=== PATIENT | male | born 1985 | race Caucasian/White ===

== ENCOUNTER 2025-09-22 14:06 | Emergency (ER) | payer OTHER, SELFPAY ==
[2025-09-22 14:20] VITALS: BP 119/84; PULSE 89; RESP 17; TEMP 36.4; O2SAT 100; BMI 33.7
--- OUTSIDE RECORDS SUMMARY | 2025-09-22 14:44 | XMS_ITS | Encounter Summary ---
Author Organization [facility] Address [address] [place] [address] Care Team Providers Care Assisted Living Director Name Role Phone Bimal Schulz MD, Jaquan Barry Primary Care Provider Encounter Details Date Type Department Care Team (Late st Contact Info) Description 10/02/2007 Outpatient Historical [facility] [address] [facility] [address] [place] [id number] Mary Abrams, [facility] [address] 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
--- OUTSIDE RECORDS SUMMARY | 2025-09-22 14:44 | XMS_ITS | Encounter Summary ---
Author Organization [facility] Address [address] [place] [address] Care Team Providers Care Finishing Room Operator Name Role Phone Bimal Schulz MD, Jaquan Barry Primary Care Provider Encounter Details Date Type Department Care Team (Late st Contact Info) Description 08/10/2007 Emergency [facility] Emergency Department [address] [place] [address] Isael Gagnon MD NO ADDRESS ON FILE Fx Lumbar Vertebra-Closed (CMS/HCC) (Primary Dx) Social History Tobacco Use Types Packs/Day Years Used Date Smoking Tobacco: Never Assessed Sex and Gender Information Value Date Recorded Sex Assigned at Not on file 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
--- OUTSIDE RECORDS SUMMARY | 2025-09-22 14:44 | XMS_ITS | Clinical Summary ---
Author Organization [facility] Address [address] [place] [address] Care Team Providers Care Mental Retardation Nurse Name Role Phone Bimal Schulz MD, Jaquan Barry Primary Care Provider Allergies No known active allergies Medications omeprazole (PriLOSEC) 40 mg Capsule, Delayed Release(E.C.) Take 40 mg by mouth daily. Active vit B cmplx 3-FA-Vit C-Biotin (RENAVITE-RX RX) 1-60-300 mg-mg-mcg Tablet Take 1 Tablet by mouth daily. Active MULTIVIT-MINERALS /FOLIC ACID (ADULT ONE DAILY MULTIVITAMIN ORAL) Take by mouth. Active OTHER tumeric . Active calcium as carbonate (OS-JOSÉ) 1,250 mg (500 mg elemental) tablet Take 1 Tablet by mouth daily. Active folic acid (FOLVITE) 1 mg tablet Take 1 Tablet (1 mg) by mouth daily. 30 Tablet 11 8 Active leflunomide (ARAVA) 20 mg Tablet Take once a day on Mondays and Fridays 8 Tablet 1 Active sulfaSALAzine (AZULFIDINE EN-TAB) 500 mg Tablet, Delayed Release (E.C.) Take 1 Tablet (500 mg) by mouth 2 times daily after meals. 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/08/2018 Immunizations Immunization Administration Dates Next Due (TDVAX)(7 YRS UP) TETANUS AN D DIPHTHERIA TOXOIDS, ADSORBED (2 LF OF TETANUS TOXOID AND 2 LF OF DIPHTHERIA TOXOID), 0.5ML (PF), IM 05/30/2002 Dt Dtp Dtap Vaccine 10/02/1990 Hepatitis B Vaccine 09/16/1999,03/18/1999,1998 IPV/OPV 10/02/1990 Family History Relation Name Status Comments Father Alive Mother Alive Social History Tobacco Use Types Packs/Day Years Used Date Smoking Tobacco: Former Cigarettes 0.5 10 1 12/12/2004 - 10/11/2015 Smokeless Tobacco: Never Alcohol Use Standard Drinks/Week Comments No 0 (1 standard drink = 0.6 oz pur e alcohol) Sex and Gender Information Value Date Recorded Sex Assigned at Not on file 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 Gender Identity Not on file Sexual Orientation Not on file 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 on file Not on file Not on f ile Last Filed Vital Signs Vital Sign Reading Time Taken Comments Blood Pressure 126/76 02/08/2021 10:50 AM CDT Pulse 81 02/08/2021 10:50 AM CDT Temperature - - Respiratory Rate 20 02/08/2021 10:50 AM CDT Oxygen Saturation 96% 02/08/2021 10:50 AM CDT Inhaled Oxygen Concentration - - Weight 105.9 kg (233 lb 8 oz) 02/08/2021 10:50 A M CDT Height 180.3 cm (5' 11 ) 02/08/2021 10:50 AM CDT Body Mass Index 32.57 02/08/2021 10:50 AM CDT Plan of Treatment Health Maintenance Due Date Last Done Comments HPV VACCINES (1 - 3-dose SCD M series) 2013 INFLUENZA VACCINE (#1) 2025 07/31/2020, 2019 DTAP/TDAP/TD VACCINES (4 - T d or Tdap) 04/15/2029 04/15/2019, 05/30/2002, 10/02/1990 HEPATITIS B VACCINES Completed 09/16/1999, 03/18/1999, 02/11/1999 Care Teams Mental Retardation Nurse Relationship Specialty Start Date End Date Bimal Schulz, Jaquan Barry MD [address] [address] PCP - General Family Practice 05/08/18
--- OUTSIDE RECORDS SUMMARY | 2025-09-22 14:44 | XMS_ITS | Encounter Summary ---
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
--- OUTSIDE RECORDS SUMMARY | 2025-09-22 14:44 | XMS_ITS | Clinical Summary ---
Author Organization [facility] Address [address] [place] [address] Care Team Providers Care Valve Setter Name Role Phone Bimal Schulz MD, Jaquan Barry Primary Care Provider Allergies Active Allergy Reactions Criticality Noted Date Comments Nsaids (Non-Steroidal Anti-Inflammatory Drug) Other (See Comments) 10/21/2021 Can't have d/t gastric bypass surgery Medications sulfaSALAzine (AZULFIDINE) 500 mg tablet Take 1 Tablet (500 mg) by mouth 2 times daily. 60 Tablet 1 1 Active folic acid (FOLVITE) 1 mg tablet Take 1 Tablet (1 mg) by mouth daily. 30 Tablet 11 8 Active methylPREDNISolon e (MEDROL DOSPACK) 4 mg Tablets, Dose Pack Take each days dose in AM with food. 21 Tablet 2 Active chlorzoxazone (PARAFON FORTE) 500 mg tablet Take 1 Tablet (500 mg) by mouth daily at bedtime. 15 Tablet 2 Active omeprazole (PriLOSEC) 40 mg Capsule, Delayed Release(E.C.) Take 40 mg by mouth daily. 8 Active calcium as carbonate (OS-JOSÉ) 1,250 mg (500 mg elemental) tablet Take 1 Tablet by mouth daily. 8 Active multivit-minerals /folic acid (ADULT ONE DAILY MULTIVITAMIN ORAL) Take by mouth. 8 Active vit B cmplx 3-FA-Vit C-Biotin (RENAVITE-RX RX) 1-60-300 mg-mg-mcg Tablet Take 1 Tablet by mouth daily. 8 Active OTHER tumeric . 8 Active Active Problems Problem Noted Date Diagnosed [...] Used Date Smoking Tobacco: Former Cigarettes 0.5 Q uit: 10/11/2015 Smokeless Tobacco: Never Alcohol Use Standard Drinks/Week Comments No 0 (1 standard drink = 0.6 oz pur e alcohol) Sex and Gender Information Value Date Recorded Sex Assigned at Not on file Legal Sex Male 7:43 AM DISTILLERY MILLER Gender Identity Not on file Sexual Orientation Not on file Last Filed Vital Signs Vital Sign Reading Time Taken Comments Blood Pressure 132/84 10/21/2021 8:55 AM DISTILLERY MILLER Pulse 59 10/21/2021 8:55 AM DISTILLERY MILLER Temperature - - Respiratory Rate 18 10/21/2021 8:55 AM DISTILLERY MILLER Oxygen Saturation 98% 10/21/2021 8:55 AM DISTILLERY MILLER Inhaled Oxygen Concentration - - Weight 114.8 kg (253 lb) 10/21/2021 8:55 AM DISTILLERY MILLER Height 180.3 cm (5' 11 ) 10/21/2021 8:55 AM DISTILLERY MILLER Body Mass Index 35.29 10/21/2021 8:55 AM DISTILLERY MILLER Plan of Treatment Health Maintenance Due Date Last Done Comments HPV VACCINES (1 - 3-dose SCD M series) 2013 INFLUENZA VACCINE (#1) 2025 07/31/2020 COVID-19 Vaccine (3 - 2024-2 6 season) 2025 06/04/2021, 05/07/2021 DTAP/TDAP/TD VACCINES (4 - T d or Tdap) 04/15/2029 04/15/2019, 05/30/2002, 10/02/1990 HEPATITIS B VACCINES Completed 09/16/1999, 03/18/1999, 02/11/1999 Insurance [facility] [place] Care Teams Valve Setter Relationship Specialty Start Date End Date Jaquan Wallis Jr., MD [address] [phone] PCP - General 01/20/21
--- OUTSIDE RECORDS SUMMARY | 2025-09-22 14:44 | XMS_ITS | Encounter Summary ---
Author Organization [facility] Address [address] [place] [address] Care Team Providers Care Workforce Planner Name Role Phone Bimal Schulz MD, Jaquan Barry Primary Care Provider Encounter Details Date Type Department Care Team (Latest Contact Info) Description 08/10/2007 Outpatient Historical [facility] [address] 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 Technique: Spiral acquisition from the T12 superior endplate to the S2 level, axial images submittedwith reconstructions. Findings: Thoracolumbar region demonstrates multilevel small Schmorl's nodes. L1-L2 level is otherwiseunremarkable. L2 vertebral body superior endplate to the left of midline demonstrates a smallpartial compression. L2-L3 shows facet hypertrophy. L3-L4 also shows facet hypertrophy. L4-L5 discshows a bulge somewhat left paracentral and with facet hypertrophy there is mild canal stenosis. L5-S1 shows facet hypertrophy with a degree of facet joint fragmentation. There is nospondylolisthesis. L1 shows rudimentary bilateral ribs. Impression: L2 vertebral body superior endplate (slightly to the left of midline) demonstrates a mildpartial compression. - Dictated By: Ham Arshad M.D. Electronically Signed By: Ham Arshad M.D. Date Signed: 08/11/07 AMA Procedure Note 09/20/2009 CT Lumbar Spine. Technique: Spiral acquisition from the T12 superior endplate to the S2 level, axialimages submittedwith reconstructions. Findings: Thoracolumbar region demonstrates multilevel small Schmorl's nodes. L1-Z8lzqic is otherwiseunremarkable. L2 vertebral body superior endplate to the left of midline demonstrates asmallpartial compression. L2-L3 shows facet hypertrophy. L3-L4 also shows facet hypertrophy. L4- T0kexektvwx a bulge somewhat left paracentral and with facet hypertrophy there is mild canal stenosis. L5-S1 shows facet hypertrophy with a degree of facet joint fragmentation.There is nospondylolisthesis. L1 shows rudimentary bilateral ribs. Impression: L2 vertebral body superior endplate (slightly to the left of midline)demonstrates a mildpartial compression. - Dictated By: Ham Arshad M.D. Electronically Signed By: Ham Arshad M.D. Date Signed: 08/11/07 [facility] ORDERABLES Marilee l Result * CT THORACIC SPINE WO CONTRAST (08/10/2007 4:57 PM CDT) Anatomical Region Laterality Modality Spine Other 08/10/2007 4:57 PM CDT Narrative 08/10/2007 4:[address] Thoracic Spine. Clinical Indication: 21-year-old male with pain. Technique: Spiral acquisition, axial images submitted with reconstructions. Findings: Body habitus of the patient compromises diagnostic image quality. There is no fracture ordislocation. Grossly, there is no sign of a disc herniation or canal stenosis. Note is made ofmultilevel mild degenerative changes. Impression: Mild degenerative changes; there is no fracture, disc herniation or canal stenosis. - Dictated By: Ham Arshad M.D. Electronically Signed By: Ham Arshad M.D. Date Signed: 08/11/07 AMA Procedure Note 09/20/2009 CT Thoracic Spine. Clinical Indication: 21-year-old male with pain. Technique: Spiral acquisition, axial images submitted with reconstructions. Findings: Body habitus of the patient compromises diagnostic image quality. There isno fracture ordislocation. Grossly, there is no sign of a disc herniation or canal stenosis. Note ismade ofmultilevel mild degenerative changes. Impression: Mild degenerative changes; there is no fracture, disc herniation or canalstenosis. - Dictated By: Ham Arshad M.D. Electronically Signed By: Ham Arshad M.D. Date Signed: 08/11/07 AMA [facility] CT ORDERABLES Marilee l Result documented in this encounter Visit Diagnoses Diagnosis Backache, unspecified- Primary documented in this encounter Care Teams Workforce Planner Relationship Specialty Start Date End Date Jaquan Wallis Jr., MD [address] [address] PCP - General Family Practice 05/08/18 documented as of this encounter
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
--- OUTSIDE RECORDS SUMMARY | 2025-09-22 14:44 | XMS_ITS | Encounter Summary ---
Author Organization [facility] Address [address] [place] [address] Care Team Providers Care Pasteurizer Name Role Phone Bimal Schulz MD, Jaquan Barry Primary Care Provider Encounter Details Date Type Department Care Team (Latest Contact Info) Description 08/21/2007 Outpatient Historical [facility] [address] [place] [address] Yuan Royal MD [address] [place] [address] Lumbago (Primary Dx) Social History Tobacco Use Types Packs/Day Years Used Date Smoking Tobacco: Never Assessed Sex and Gender Information Value Date Recorded Sex Assigned at Not on file 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 Findings: Comparison CT of the lumbar spine is dated 08/10/2007. Today's examination is limited secondary to poor penetration of the x-ray beam. There appears to be amild superior endplate compression fracture of L2. There is no significant retropulsion of thevertebral body. The visualized other lumbar levels appear to be free of fracture. Summary: Mild superior endplate compression fracture of L2 without significant retropulsion. - Dictated By: Ryan Lopez Jr., M.D. Electronically Signed By: Ryan Lopez Jr., M.D.MD Date Signed: 08/23/07 [facility] Procedure Note 09/20/2009 Exam: Spine - Thoracolumbar One ViewDate/Time of Exam: Aug 21, 2007 3:50:08 PMHistory: INJURY. Findings: Comparison CT of the lumbar spine is dated 08/10/2007. Today's examination is limited secondary to poor penetration of the x-raybeam. There appears to be amild superior endplate compression fracture of L2. There is no significantretropulsion of thevertebral body. The visualized other lumbar levels appear to be free of fracture. Summary: Mild superior endplate compression fracture of L2 without significantretropulsion. - Dictated By: Ryan Lopez Jr., M.D. Electronically Signed By: Ryan Lopez Jr., M.D.MD Date Signed: 08/23/07 [facility] Yuan Royal MD DIAGNOSTIC IMAGING ORDERABLES Final Result documented in this encounter Visit Diagnoses Diagnosis Lumbago- Primary documented in this encounter Care Teams Pasteurizer Relationship Specialty Start Date End Date Jaquan Wallis Jr., MD [address] [phone] PCP - General Family Practice 05/08/18 documented as of this encounter
[2025-09-22 15:13] VITALS: BP 129/102; PULSE 110; RESP 18; O2SAT 91
--- NOTE | 2025-09-22 15:13 | CTR_ITS ---
PROCEDURE INFORMATION: Exam: CT Abdomen And Pelvis With Contrast Exam date and time: 09/22/2025 3:41 PM Age: 39 years old Clinical indication: Abdominal pain; Additional info: Left sided abd pain TECHNIQUE: Imaging protocol: Computed tomography of the abdomen and pelvis with contrast. Sagittal and coronal reformatted images were also reviewed. Radiation optimization: All CT scans at this facility use at least one of these dose optimization techniques: automated exposure control; mA and/or kV adjustment per patient size (includes targeted exams where dose is matched to clinical indication); or iterative reconstruction. Contrast material: [id number]; Contrast volume: 100 ml; Contrast route: INTRAVENOUS (IV); COMPARISON: No relevant prior studies available. RADIATION DOSE METRICS: Total DLP (mGy-cm): 1194.62 FINDINGS: Lungs: Visualized lungs are clear. Pleural spaces: No pleural effusion. Heart: Visualized portions of the heart are unremarkable. Liver: The liver is unremarkable. Gallbladder and biliary ducts: Patient has had a previous cholecystectomy. No biliary ductal dilatation. Pancreas: The pancreas is unremarkable. No pancreatic ductal dilatation. Spleen: The spleen is unremarkable. Adrenal glands: The right and left adrenal glands are unremarkable. Kidneys and ureters: The right kidney is unremarkable. Simple cyst in the left kidney measuring 2.5 cm. The right and left ureters are unremarkable. 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 Marked inflammatory changes at the perforation site (series 4, images 14-20 and series 6, images 40-58). Scattered foci of free intraperitoneal air in the left upper quadrant. No acute abnormality in the colon. Appendix: Appendix not definitely visualized. No inflammatory changes in the pericecal region however. Intraperitoneal space: Moderate amount of free fluid in the pelvis. No ascites. No abscess. Also see under stomach and bowel . Vasculature: No evidence for aortic aneurysm or aortic dissection. Hepatic veins, portal veins, splenic vein, and SMV are patent. Lymph nodes: No lymphadenopathy. Urinary bladder: The bladder is unremarkable. Reproductive: Unremarkable as visualized. Bones/joints: Mild degenerative changes in the visualized spine. Four non rib-bearing vertebral bodies, these are designated L1 through L4. Old, mild compression deformities of T9, T11, and L1. Soft tissues: No acute abnormality in the extra-abdominal soft tissues. CT/CT abdomen pelvis w con* [id number] IMPRESSION: 1. 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 Marked inflammatory changes at the perforation site. Scattered foci of free intraperitoneal air in the left upper quadrant. It is uncertain whether this may be due to dehiscence at the surgical site or possibly a perforated gastric ulcer. 2. Moderate amount of free fluid in the pelvis. 3. Incidental/nonacute findings are listed in the report. COMMENTS: Consistent with the [employer]'s Incidental Findings Committee white paper (J Am Tomasz Radiol 2018): Any incidental renal lesion less than 1 cm or classified as too small to characterize, or any incidental cystic renal lesion characterized as simple-appearing, is likely benign. No follow-up imaging is recommended for these lesions per consensus recommendations based on imaging criteria.
--- NOTE | 2025-09-22 15:20 | W.ED.ABDPA2 ---
Documented by User: DORIAN Robertson 09/22/25 17:24 HPI - Abdominal Pain General: Chief Complaint: Abdominal Pain Stated Complaint: urgent care sent, abd pain Time Seen by Provider: 09/22/25 15:00 Source: patient Mode of arrival: ambulatory Limitations: no limitations History of Present Illness: Patient is a 39-year-old male who presents emergency department complaining of left-sided abdominal pain that began 2 hours prior to arrival, states it occurred while he was working out. He has no similar incidences of pain in the past, no past surgical history other than a lap band procedure. No history of hernia. He has no associated symptoms, no fevers, chills, nausea/vomiting, diarrhea, constipation, chest pain, or shortness of breath. No urinary symptoms nor does he history of kidney infection or kidney stones. At this time his vitals are stable, afebrile, and overall he is well-appearing. Does note that the pain feels like an intermittent burning and stabbing sensation to the left abdomen that radiates periumbilically. States the pain is currently a 7/10, has been constant since onset and is worse with any movement. MD elicited complaint: abdominal pain Onset (ago): hour(s) (2) Pain Consistency: constant Location: LUQ and LLQ Severity: severe Pain scale (0-10): 7 Quality: stabbing and burning Migration to: periumbilical Exacerbating factors: movement Associated Symptoms: Denies bloating, change in stool character, chills, constipation, diarrhea, dysuria, fever(s), hematochezia, nausea and vomiting Related Data Home Medications ?Medication ?Instructions ?Recorded ?Confirmed No Known Home Medications 09/22/25 09/22/25 Allergies Allergy/AdvReac Type Severity Reaction Status Date / Time No Known Allergies Allergy Verified 09/22/25 13:25 Review of Systems General: Reports: 10 or more systems reviewed and unremarkable except in HPI and below Const: Denies: fever(s), chills, change in appetite, change in weight or diaphoresis ENMT: Denies: throat pain or hoarseness Card: Denies: chest pain, palpitations or lightheadedness Resp: Denies: dyspnea, productive cough or wheezing GI: Reports: abdominal pain; Denies: nausea, vomiting, diarrhea, constipation, bloating, change in stool character or hematochezia : Denies: flank pain, difficulty urinating, dysuria, urinary frequency or urinary urgency Musc: Denies: neck pain or back pain Skin/Breast: Denies: rash or new lesions Neuro: Denies: headache(s) or dizziness PFSH ED PFSH: Social History Smoking and tobacco/nicotine status: unknown if used tobacco/nicotine Physical Exam Const: COMMON NORMALS: no acute distress, patient oriented x3, no limitations, healthy appearing, alert and well nourished GENERAL APPEARANCE: cooperative NUTRITIONAL APPEARANCE: obese ORIENTATION/CONSCIOUSNESS: Yes awake OTHER: Nontoxic-appearing Neck/C-Spine: COMMON NORMALS: full ROM, supple and no meningeal signs Resp: COMMON NORMALS: normal respiratory effort, No retractions, No use of accessory muscles and clear to auscultation bilaterally AUSCULTATION: clear to auscultation bilaterally, no crackles, no rales, no rhonchi and no wheezes Cardio: COMMON NORMALS: regular rate, regular rhythm, No gallops present (Cardio), No clicks present (Cardio), No murmurs present (Cardio) and No rub (Cardio) RATE: regular rate RHYTHM: regular rhythm GI: COMMON NORMALS: Soft to palpation, No hepatosplenomegaly present and no masses INSPECTION: Yes central obesity AUSCULTATION: Yes normoactive bowel sounds PALPATION: Yes Soft to palpation, Yes Tenderness to palpation present (GI) Details: LLQ and LUQ, Yes Guarding due to palpation present (GI) (Left abdomen) and Yes No hepatosplenomegaly present RECTAL EXAM: Yes deferred : COMMON NORMALS: Yes no CVA tenderness BLADDER/KIDNEY EXAM: Yes no CVA tenderness Back/Pelvis: COMMON NORMALS: no CVA tenderness Extremity: COMMON NORMALS: normal to inspection and full ROM Neuro: COMMON NORMALS: patient oriented x3, moves all extremities, no focal motor deficits and no sensory deficits noted SENSORIUM/ORIENTATION: Yes alert MENINGEAL SIGNS: Yes no meningeal signs Psych: COMMON NORMALS: mental status grossly normal, cooperative and speech normal SPEECH: Yes normal speech Skin: COMMON NORMALS: no rashes or lesions noted GENERAL SKIN EXAM: no rashes or lesions noted Course Vital Signs: Vital signs: Vital Signs Temperature 97.6 F 09/22/25 14:20 Pulse Rate 104 H 09/22/25 17:00 Respiratory Rate 18 09/22/25 15:13 Blood Pressure 131/85 09/22/25 17:00 Pulse Oximetry 98 09/22/25 17:00 Oxygen Delivery Me thod Room Air 09/22/25 14:20 MDM - Abdominal Pain Medical Decision Making Patient presented for sudden onset left sided abdominal pain while working out. History of gastric bypass procedure in 2017. No other symptoms to note, however pain noted to be severe 7/10 and burning/sharp. No abdominal bruising at time of exam, overall vitals are stable intermittently he will be tachycardic but after administrating IV pain medication this does improved. IV fluids and nausea meds also started. His white count is mildly elevated to 13, the rest of his labs are unremarkable specifically hemoglobin is normal. Concern is that on abdomen and CT pelvis there is evidence of a focal perforation to the left inferior wall of the stomach, which is concerning for dehiscence at the surgical site and less likely thought to be a gastric ulcer. For these findings, I spoke to on-call bariatric surgeon, Dr. Watkins, at [facility] in [facility] where the patient had his initial surgery by Dr. Camp. Dr. Bustos is excepting the patient for transfer, inquired about flight but this was declined due to weather. Patient will travel by [facility] for optimal management, patient is informed of these findings and the plan and agrees, all of the questions and concerns addressed. Spoke to Dr. Hong about this plan, agreeing with disposition. Lab Data 09/22/25 15:05 09/22/25 15:05 Labs/Radiology: Radiology Impressions Abdomen/Pelvis CT 09/22/25 15:13 IMPRESSION: 1. 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 Marked inflammatory changes at the perforation site. Scattered foci of free intraperitoneal air in the left upper quadrant. It is uncertain whether this may be due to dehiscence at the surgical site or possibly a perforated gastric ulcer. 2. Moderate amount of free fluid in the pelvis. 3. Incidental/nonacute findings are listed in the report. COMMENTS: Consistent with the [employer]'s Incidental Findings Committee white paper (J Am Tomasz Radiol 2018): Any incidental renal lesion less than 1 cm or classified as too small to characterize, or any incidental cystic renal lesion characterized as simple-appearing, is likely benign. No follow-up imaging is recommended for these lesions per consensus recommendations based on imaging criteria. ADDENDUM: 09/22/25 6232 THIS REPORT CONTAINS FINDINGS THAT MAY BE CRITICAL TO PATIENT CARE. NIRALI Grossman confirmed on 09/22/2025 at 4:20 PM [employer] [employer] [facility] that a copy of the report containing critical findings was received and there were no questions. Laboratory Results WBC 12.99 10^3/uL (3.29-11.43) H 09/22/25 15:05 RBC 5.28 10^6/uL (3.85-5.65) 09/22/25 15:05 Hgb 15.70 g/dL (11.27-16.99) 09/22/25 15:05 Hct 47.8 % (37-53) 09/22/25 15:05 MCV 90.5 fl (82-101) 09/22/25 15:05 MCH 29.7 pg (27-33) 09/22/25 15:05 MCHC 32.8 g/dL (30-55) 09/22/25 15:05 RDW 13.7 % (12.1-15.1) 09/22/25 15:05 Plt Count 188 10^3/cmm (157-399) 09/22/25 15:05 MPV 10.0 fL (7.4-10.4) 09/22/25 15:05 Neut % (Auto) 86.8 % 09/22/25 15:05 Lymph % (Auto) 7.2 % 09/22/25 15:05 Vance % (Auto) 5.0 % 09/22/25 15:05 Eos % (Auto) 0.6 % 09/22/25 15:05 Baso % (Auto) 0.2 % 09/22/25 15:05 Neut # (Auto) 11.28 10^3/uL (1.8-7.7) H 09/22/25 15:05 Lymph # (Auto) 0.9 10^3/uL (0.8-4.8) 09/22/25 15:05 Vance # (Auto) 0.7 10^3/uL (0.2-0.9) 09/22/25 15:05 Eos # (Auto) 0.1 10^3/uL (0.0-0.8) 09/22/25 15:05 Baso # (Auto) 0.0 10^3/uL (0.0-0.1) 09/22/25 15:05 Nucleated RBC % (auto) 0 % 09/22/25 15:05 Nucleated RBCs # 0.0 /100WBC 09/22/25 15:05 Sodium 141 mmol/L (136-145) 09/22/25 15:05 Potassium 4.8 mmol/L (3.5-5.1) 09/22/25 15:05 Chloride 104 mmol/L (98-107) 09/22/25 15:05 Carbon Dioxide 28 mmol/L (22-29) 09/22/25 15:05 Anion Gap 13.8 (5-19) 09/22/25 15:05 BUN 22 mg/dL (6-20) H 09/22/25 15:05 Creatinine 0.8 mg/dL (0.7-1.2) 09/22/25 15:05 GFR Calculation 108.2 mL/min (90-130) 09/22/25 15:05 Glucose 101 mg/dL (65-115) 09/22/25 15:05 Calculated Osmolality 295 mOsm/kg (285-295) 09/22/25 15:05 Calcium 9.5 mg/dL (8.5-10.5) 09/22/25 15:05 Total Bilirubin 0.5 mg/dL (0.15-1.2) 09/22/25 15:05 AST 29 U/L (0-40) 09/22/25 15:05 ALT 28 U/L (0-41) 09/22/25 15:05 Alkaline Phosphatase 62 U/L (40-130) 09/22/25 15:05 Total Protein 7.0 g/dL (6.6-8.7) 09/22/25 15:05 Albumin 4.5 g/dL (3.5-5.2) 09/22/25 15:05 Globulin 2.5 g/dL (1.3-4.6) 09/22/25 15:05 Lipase 92 U/L (13-60) H 09/22/25 15:05 Urine Color Yellow (Yellow) 09/22/25 16:06 Urine Appearance Clear (CLEAR) 09/22/25 16:06 Urine pH 5.0 (5-7) 09/22/25 16:06 Ur Specific [place] 1.021 (1.005-1.030) 09/22/25 16:06 Urine Protein Trace (Negative) A 09/22/25 16:06 Urine Glucose (UA) Negative (Normal) 09/22/25 16:06 Urine Ketones Negative (Negative) 09/22/25 16:06 Urine Blood Negative (Negative) 09/22/25 16:06 Urine Nitrate Negative (Negative) 09/22/25 16:06 Urine Bilirubin Negative (Negative) 09/22/25 16:06 Urine Urobilinogen 0.2 mg/dL (Negative) 09/22/25 16:06 Ur Leukocyte Esterase Negative (Negative) 09/22/25 16:06 Urine RBC 0-2 /hpf (0-2) 09/22/25 16:06 Urine WBC 0-5 /hpf (0-5) 09/22/25 16:06 Ur Squamous Epith Cells 0-5 /hpf (0-5) 09/22/25 16:06 Urine Bacteria None seen /hpf (NONE) 09/22/25 16:06 Hyaline Casts 0.81 /lpf 09/22/25 16:06 All radiology interpretation(s) finalized by discharge Discharge Plan Discharge Patient Disposition: Xfer Short-Term Hosp Clinical Impression: Gastric perforation Condition: Stable Patient Instructions: Abdominal Pain (ED) Print Language: Cameroonian Coding Level of Care Code ED [facility] Coordinator for Chg Fwd Documented by User: Jazmine Hong MD 09/22/25 17:34 HPI - Abdominal Pain General: Chief Complaint: Abdominal Pain Stated Complaint: urgent care sent, abd pain Time Seen by Provider: 09/22/25 15:00 Related Data Home Medications ?Medication ?Instructions ?Recorded ?Confirmed No Known Home Medications 09/22/25 09/22/25 Allergies Allergy/AdvReac Type Severity Reaction Status Date / Time No Known Allergies Allergy Verified 09/22/25 13:25 PFSH ED PFSH: Social History Smoking and tobacco/nicotine status: unknown if used tobacco/nicotine Course Vital Signs: Vital signs: Vital Signs Temperature 97.6 F 09/22/25 14:20 Pulse Rate 104 H 09/22/25 17:00 Respiratory Rate 18 09/22/25 15:13 Blood Pressure 131/85 09/22/25 17:00 Pulse Oximetry 98 09/22/25 17:00 Oxygen Delivery Me thod Room Air 09/22/25 14:20 MDM - Abdominal Pain Medical Decision Making Patient presented for sudden onset left sided abdominal pain while working out. History of gastric bypass procedure in 2017. No other symptoms to note, however pain noted to be severe 7/10 and burning/sharp. No abdominal bruising at time of exam, overall vitals are stable intermittently he will be tachycardic but after administrating IV pain medication this does improved. IV fluids and nausea meds also started. His white count is mildly elevated to 13, the rest of his labs are unremarkable specifically hemoglobin is normal. Concern is that on abdomen and CT pelvis there is evidence of a focal perforation to the left inferior wall of the stomach, which is concerning for dehiscence at the surgical site and less likely thought to be a gastric ulcer. For these findings, I spoke to on-call bariatric surgeon, Dr. Watkins, at [facility] in [facility] where the patient had his initial surgery by Dr. Camp. Dr. Bustos is excepting the patient for transfer, inquired about flight but this was declined due to weather. Patient will travel by [facility] for optimal management, patient is informed of these findings and the plan and agrees, all of the questions and concerns addressed. Spoke to Dr. Hong about this plan, agreeing with disposition. I saw patient with above midlevel CT did show a perforation of stomach has a history of gastric bypass. He had spoke to surgeon here Dr. Smallwood who recommended higher level of care due to his gastric bypass patient was accepted by his surgeon in [facility]. Did attempt to fly but was unable to due to weather sending as a life threat by EMS patient's vitals here have been stable did treat him with vancomycin and Zosyn. critical care time 45 min The high probability of a clinically significant, sudden or life threatening deterioration of the patient's gi system(s) required my full and direct attention, intervention and personal management. The critical care time is as shown. This time is in addition to time spent performing any reported procedures but includes the following: [x] Data and vital sign review and interpretation [x] Patient assessment, examination and intervention [x] Documentation [x] Medication orders and management Lab Data 09/22/25 15:05 09/22/25 15:05 Labs/Radiology: Radiology Impressions Abdomen/Pelvis CT 09/22/25 15:13 IMPRESSION: 1. 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 Marked inflammatory changes at the perforation site. Scattered foci of free intraperitoneal air in the left upper quadrant. It is uncertain whether this may be due to dehiscence at the surgical site or possibly a perforated gastric ulcer. 2. Moderate amount of free fluid in the pelvis. 3. Incidental/nonacute findings are listed in the report. COMMENTS: Consistent with the [employer]'s Incidental Findings Committee white paper (J Am Tomasz Radiol 2018): Any incidental renal lesion less than 1 cm or classified as too small to characterize, or any incidental cystic renal lesion characterized as simple-appearing, is likely benign. No follow-up imaging is recommended for these lesions per consensus recommendations based on imaging criteria. ADDENDUM: 09/22/25 3898 THIS REPORT CONTAINS FINDINGS THAT MAY BE CRITICAL TO PATIENT CARE. NIRALI Grossman confirmed on 09/22/2025 at 4:20 PM [employer] that a copy of the report containing critical findings was received and there were no questions. Laboratory Results WBC 12.99 10^3/uL (3.29-11.43) H 09/22/25 15:05 RBC 5.28 10^6/uL (3.85-5.65) 09/22/25 15:05 Hgb 15.70 g/dL (11.27-16.99) 09/22/25 15:05 Hct 47.8 % (37-53) 09/22/25 15:05 MCV 90.5 fl (82-101) 09/22/25 15:05 MCH 29.7 pg (27-33) 09/22/25 15:05 MCHC 32.8 g/dL (30-55) 09/22/25 15:05 RDW 13.7 % (12.1-15.1) 09/22/25 15:05 Plt Count 188 10^3/cmm (157-399) 09/22/25 15:05 MPV 10.0 fL (7.4-10.4) 09/22/25 15:05 Neut % (Auto) 86.8 % 09/22/25 15:05 Lymph % (Auto) 7.2 % 09/22/25 15:05 Vance % (Auto) 5.0 % 09/22/25 15:05 Eos % (Auto) 0.6 % 09/22/25 15:05 Baso % (Auto) 0.2 % 09/22/25 15:05 Neut # (Auto) 11.28 10^3/uL (1.8-7.7) H 09/22/25 15:05 Lymph # (Auto) 0.9 10^3/uL (0.8-4.8) 09/22/25 15:05 Vance # (Auto) 0.7 10^3/uL (0.2-0.9) 09/22/25 15:05 Eos # (Auto) 0.1 10^3/uL (0.0-0.8) 09/22/25 15:05 Baso # (Auto) 0.0 10^3/uL (0.0-0.1) 09/22/25 15:05 Nucleated RBC % (auto) 0 % 09/22/25 15:05 Nucleated RBCs # 0.0 /100WBC 09/22/25 15:05 Sodium 141 mmol/L (136-145) 09/22/25 15:05 Potassium 4.8 mmol/L (3.5-5.1) 09/22/25 15:05 Chloride 104 mmol/L (98-107) 09/22/25 15:05 Carbon Dioxide 28 mmol/L (22-29) 09/22/25 15:05 Anion Gap 13.8 (5-19) 09/22/25 15:05 BUN 22 mg/dL (6-20) H 09/22/25 15:05 Creatinine 0.8 mg/dL (0.7-1.2) 09/22/25 15:05 GFR Calculation 108.2 mL/min (90-130) 09/22/25 15:05 Glucose 101 mg/dL (65-115) 09/22/25 15:05 Calculated Osmolality 295 mOsm/kg (285-295) 09/22/25 15:05 Calcium 9.5 mg/dL (8.5-10.5) 09/22/25 15:05 Total Bilirubin 0.5 mg/dL (0.15-1.2) 09/22/25 15:05 AST 29 U/L (0-40) 09/22/25 15:05 ALT 28 U/L (0-41) 09/22/25 15:05 Alkaline Phosphatase 62 U/L (40-130) 09/22/25 15:05 Total Protein 7.0 g/dL (6.6-8.7) 09/22/25 15:05 Albumin 4.5 g/dL (3.5-5.2) 09/22/25 15:05 Globulin 2.5 g/dL (1.3-4.6) 09/22/25 15:05 Lipase 92 U/L (13-60) H 09/22/25 15:05 Urine Color Yellow (Yellow) 09/22/25 16:06 Urine Appearance Clear (CLEAR) 09/22/25 16:06 Urine pH 5.0 (5-7) 09/22/25 16:06 Ur Specific [place] 1.021 (1.005-1.030) 09/22/25 16:06 Urine Protein Trace (Negative) A 09/22/25 16:06 Urine Glucose (UA) Negative (Normal) 09/22/25 16:06 Urine Ketones Negative (Negative) 09/22/25 16:06 Urine Blood Negative (Negative) 09/22/25 16:06 Urine Nitrate Negative (Negative) 09/22/25 16:06 Urine Bilirubin Negative (Negative) 09/22/25 16:06 Urine Urobilinogen 0.2 mg/dL (Negative) 09/22/25 16:06 Ur Leukocyte Esterase Negative (Negative) 09/22/25 16:06 Urine RBC 0-2 /hpf (0-2) 09/22/25 16:06 Urine WBC 0-5 /hpf (0-5) 09/22/25 16:06 Ur Squamous Epith Cells 0-5 /hpf (0-5) 09/22/25 16:06 Urine Bacteria None seen /hpf (NONE) 09/22/25 16:06 Hyaline Casts 0.81 /lpf 09/22/25 16:06 Critical Care Time Critical Care Time: Critical Care Time: Yes Total Critical Care Time: 45 Attestation: The high probability of a clinically significant, sudden or life threatening deterioration of the patient's gi system(s) required my full and direct attention, intervention and personal management. The critical care time is as shown. This time is in addition to time spent performing any reported procedures but includes the following: [x] Data and vital sign review and interpretation [x] Patient assessment, examination and intervention [x] Documentation [x] Medication orders and management Discharge Plan Discharge Patient Disposition: Xfer Short-Term Hosp Clinical Impression: Gastric perforation Condition: Stable Patient Instructions: Abdominal Pain (ED) Print Language: Cameroonian Coding Level of Care Code ED [facility] Coordinator for Graciela Horowitz
[2025-09-22 15:27] LABS: Hematocrit 47.8 % (37-53); Hemoglobin 15.70 g/dL (11.27-16.99); Mean Corpuscular HGB Conc 32.8 g/dL (30-55); Mean Corpuscular Hemoglobin 29.7 pg (27-33); Mean Corpuscular Volume 90.5 fl (82-101); Nucleated Red Blood Cells % 0 %; Platelet Count 188 10^3/cmm (157-399); Red Blood Count 5.28 10^6/uL (3.85-5.65); White Blood Count 12.99 10^3/uL (3.29-11.43)
[2025-09-22 15:43] LABS: Alanine Aminotransferase 28 U/L (0-41); Albumin Level 4.5 g/dL (3.5-5.2); Alkaline Phosphatase 62 U/L (40-130); Anion Gap 13.8 (5-19); Aspartate Amino Transferase 29 U/L (0-40); Blood Urea Nitrogen 22 mg/dL (6-20); Calcium 9.5 mg/dL (8.5-10.5); Carbon Dioxide 28 mmol/L (22-29); Chloride 104 mmol/L (98-107); Globulin 2.5 g/dL (1.3-4.6); Glucose 101 mg/dL (65-115); Lipase 92 U/L (13-60); Osmolality Calculated 295 mOsm/kg (285-295); Potassium 4.8 mmol/L (3.5-5.1); Sodium 141 mmol/L (136-145); Total Protein 7.0 g/dL (6.6-8.7)
[2025-09-22] MEDS: iohexol 350 mg/mL 500 mL Btl (per mL) IV (15:43)
[2025-09-22 17:00] VITALS: BP 131/85; PULSE 104; O2SAT 98
[2025-09-22] MEDS: ondansetron 2 mg/ML SDV 2 mL 4 MG IVP (17:05)
[2025-09-22] MEDS: HYDROmorphone 0.5 MG/0.5 ML INJ 1 MG IVP (17:06)
[2025-09-22 17:10] LABS: Glucose Urine UA Negative (Normal); Nitrate Urine Negative (Negative); Specific Gravity, Urine 1.021 (1.005-1.030)
[2025-09-22 17:12] LABS: Add Urine Microscopic? YES
--- NOTE | 2025-09-22 17:14 | DCPLANNER ---
AIR EVAC DECLINED TO FLY DUE TO WEATHER SURVIVAL FLIGHT DECLINED DUE TO WEATHER 171
[2025-09-22] MEDS: piperacillin-tazobactam 3.375 GM in sodium chloride 0.9% (plus) 50 ML IV (17:48)
[2025-09-22 18:00] VITALS: BP 110/68; PULSE 106; RESP 18; O2SAT 95
[2025-09-22 18:27] VITALS: BP 117/73; PULSE 101; RESP 16; O2SAT 94
[2025-09-22 18:42] LABS: Lactic Sepsis W/Reflex 0.7 mmol/L (0.5-2.2)
== END 2025-09-22 18:36 | disposition short-term general hospital (02) ==
PROVIDERS: Emergency Medicine; Emergency Provider Physician Assistant
DX: K63.1 Perforation of intestine (nontraumatic) (principal); Z98.84 Bariatric surgery status
CPT/HCPCS: 36415; 74177; 80053; 81001; 83605; 83690; 85025; 96361; 96374; 96375; 99285; J1171; J2405; J2543; J3373; J7030; J7050; J9999